=== PATIENT | male | born 1975 | race African-American/Black ===

== ENCOUNTER 2017-08-06 02:11 | Emergency (ER) | payer OTHER | END 2017-08-06 03:20 | disposition home or self-care (01) | LOC: D.ER 02:11 | DX: M25.562 Pain in left knee (principal); S83.422A Sprain of lateral collateral ligament of left knee, initial encounter; X58.XXXA Exposure to other specified factors, initial encounter; Y93.89 Activity, other specified; Y92.029 Unspecified place in mobile home as the place of occurrence of the external cause ==

== ENCOUNTER 2017-11-15 01:44 | Emergency (ER) | payer OTHER ==
[2017-11-15 02:13] LABS: BASOPHILS 0.2 % (0-2); EOSINOPHILS 0.5 % (0-7); HEMATOCRIT 45.1 % (42.0-54.0); HEMOGLOBIN 14.4 g/dL (13.5-17.5); IMMATURE GRANULOCYTES 0.3 % (0-5); LYMPHOCYTES 40.6 % (15-50); MCH 25.6 pg (26.0-34.0); MCHC 31.9 g/dL (31.0-37.0); MCV 80.2 fL (80.0-100.0); MEAN PLATELET VOLUME 9.9 fL (7.4-10.4); MONOCYTES 6.5 % (2-11); NEUTROPHILS 51.9 % (40-80); PLATELET COUNT 282 10x3/uL (130-400); RBC 5.62 10x6/uL (4.20-6.10); RDW 14.2 % (11.5-14.5); WBC 13.7 10x3/uL (4.8-10.8)
[2017-11-15 02:27] LABS: ALBUMIN 3.5 g/dL (3.4-5.0); ANION GAP 11.3 mmol/L (8-16); BILIRUBIN - TOTAL 0.3 mg/dL (0.2-1.3); CALCIUM 8.3 mg/dL (8.5-10.1); CARBON DIOXIDE 28.4 mmol/L (21.0-32.0); CREATININE - SERUM 1.2 mg/dL (0.6-1.3); POTASSIUM - SERUM 3.7 mmol/L (3.5-5.1); PROTEIN - SERUM 7.4 g/dL (6.4-8.2)
[2017-11-15 03:10] LABS: APPEARANCE HAZY (CLEAR); BILIRUBIN NEGATIVE (NEGATIVE); COLOR DK YELLOW (YELLOW); GLUCOSE NEGATIVE (NEGATIVE); KETONE NEGATIVE (NEGATIVE); NITRITE NEGATIVE (NEGATIVE); PROTEIN NEGATIVE (NEGATIVE); UROBILINOGEN NORMAL (NORMAL)
[2017-11-15 03:11] LABS: BACTERIA FEW /hpf (NONE SEEN); EPITHELIAL CELLS OCC /hpf (0-5); RED CELLS - URINE 25-50 /hpf (0-5); WHITE CELLS - URINE 0-5 /hpf (0-5)
== END 2017-11-15 03:40 | disposition home or self-care (01) ==
LOC: D.ER 01:44
PROVIDERS: Family Medicine
DX: N20.1 Calculus of ureter (principal); R10.9 Unspecified abdominal pain

== ENCOUNTER 2018-05-09 22:11 | Emergency (ER) | payer OTHER ==
[~2018-05-09] VITALS: Ht 188 cm; Wt 156.8 kg
[2018-05-09 22:15] VITALS: Ht 188 cm; Wt 156.8 kg
[2018-05-09] MEDS ORDERED: VISTARIL25 MG PO (23:14)
[2018-05-09] MEDS ORDERED: ULTRAM50 MG PO (23:16)
[2018-05-10 00:48] VITALS: BP 128/72
== END 2018-05-10 00:20 | disposition home or self-care (01) ==
LOC: D.ER 22:11
DX: L25.9 Unspecified contact dermatitis, unspecified cause (principal); M25.551 Pain in right hip

== ENCOUNTER 2018-10-04 15:46 | Emergency (ER) | payer OTHER ==
[~2018-10-04] VITALS: Ht 188 cm; Wt 163.6 kg
[~2018-10-04 15:46] MED LIST: ULTRAM50 MG PO; VISTARIL25 MG PO
[2018-10-04 16:10] VITALS: Ht 188 cm; Wt 163.6 kg
[2018-10-04] MEDS ORDERED: LISINOPRIL2.5 MG (16:11)
[2018-10-04 19:54] VITALS: BP 129/88
== END 2018-10-04 19:54 | disposition home or self-care (01) ==
LOC: D.ER 15:46
DX: R51 Headache (principal); I10 Essential (primary) hypertension; R42 Dizziness and giddiness

== ENCOUNTER 2019-08-05 23:29 | Observation (INO) | payer OTHER ==
[~2019-08-05] VITALS: Ht 188 cm; Wt 174.6 kg
[~2019-08-05 23:29] MED LIST changes: +LISINOPRIL2.5 MG
[2019-08-06] VITALS (12 sets, daily range): BP systolic 102–139; BP diastolic 69–89
[2019-08-06 00:01] LABS: BASOPHILS 0.2 % (0-2); EOSINOPHILS 0.6 % (0-7); HEMATOCRIT 46.6 % (42.0-54.0); HEMOGLOBIN 14.7 g/dL (13.5-17.5); IMMATURE GRANULOCYTES 0.3 % (0-5); LYMPHOCYTES 31.7 % (15-50); MCH 26.1 pg (26.0-34.0); MCHC 31.5 g/dL (31.0-37.0); MCV 82.6 fL (80.0-100.0); MEAN PLATELET VOLUME 9.6 fL (7.4-10.4); NEUTROPHILS 60.2 % (40-80); PLATELET COUNT 317 10x3/uL (130-400); RBC 5.64 10x6/uL (4.20-6.10); RDW 14.5 % (11.5-14.5)
[2019-08-06 00:10] LABS: CALC OSMOLALITY 289 mosm/kg (275-300); CALCIUM 8.4 mg/dL (8.5-10.1); CARBON DIOXIDE 28.1 mmol/L (21.0-32.0); CHLORIDE - SERUM 108 mmol/L (98-107); GLUCOSE 105 mg/dL (74-106); POTASSIUM - SERUM 3.7 mmol/L (3.5-5.1); SODIUM 146 mmol/L (136-145); UREA NITROGEN 10 mg/dL (7-18); eGFR NON AFRICAN AMERICAN 87 mL/min (90-120)
[2019-08-06 00:16] LABS: APTT 27.7 SECONDS (22.8-39.4); INR 0.99 (0.85-1.17); PROTIME 12.6 SECONDS (11.6-15.0)
[2019-08-06 00:17] LABS: D-DIMER-QUANTITATIVE 0.31 ug/mLFEU (0.20-0.54)
[2019-08-06 00:35] LABS: ALBUMIN 3.3 g/dL (3.4-5.0); ALKALINE PHOSPHATASE 79 U/L (46-116); ALT (SGPT) 26 U/L (10-68); BILIRUBIN - TOTAL 0.27 mg/dL (0.2-1.3); CREATINE KINASE 231 UL (21-232); MAGNESIUM - SERUM 2.1 mg/dL (1.8-2.4); PRO BNP 21 pg/mL (0-125); PROTEIN - SERUM 7.5 g/dL (6.4-8.2); TROPONIN-I < 0.017 ng/mL (0.000-0.060)
--- NOTE | 2019-08-06 01:20 | NUR ---
CARDIZEM RATE INCREASED TO 15ML/HR
--- NOTE | 2019-08-06 02:21 | NUR ---
RECIEVED REPORT FROM ER. ARRIVED TO FLOOR ON STRETCHER ACCOMPANIED BY STAFF. TRANSFERED SELF TO BED. CARDIZEM AND NS INFUSING TO RIGHT HAND. O2@ [address] LUNG SOUNDS CLEAR AND ABSX4. NO EDEMA OBSERVED. DENIES ANY NEEDS AT THIS TIME.
--- NOTE | 2019-08-06 08:18 | NUR ---
AWAKE AND ALERT. TELEMERTY SHOW AFLUTTER AT 144 IV TO LEFT FA WITH NS AT 125 AND A CARDIZEM DRIP AT 15MG/HR. DENIES ANY NEEDS. FAMILY AT BEDSIDE. WILL MONITOR
--- NOTE | 2019-08-06 17:07 | NUR ---
I have reviewed this patient and I concur with the Shift Assessment completed by the Licensed Practical Nurse today this shift.
--- NOTE | 2019-08-06 19:09 | NUR ---
JOEL BEDSIDE SHIFT REPORT. UP IN BED WITH EYES OPEN AND TV ON. ALERT AND ORIENTED X4. IV TO RIGHT HAND WITH NS AT 125 AND CARDIZEM AT 15CC/HR. TELEMETRY IN PLACE. DENIES ANY NEEDS AT THIS TIME.
[2019-08-07 00:37] VITALS: BP 106/79
--- NOTE | 2019-08-07 00:44 | NUR ---
RSTING IN BED WITH EYES CLOSED. REQUESTED A FAN EARLIER. FAN IN PLACE. NO S/S OF DISTRESS OBSERVED. CONT TO INFUSE NS AT 125CCHR AND CARDIZEM AT 15CC/HR. REAMINS IN NORMAL SINUS RHYTHM.
[2019-08-07 04:30] VITALS: BP 99/74
[2019-08-07 05:31] LABS: BASOPHILS 0.3 % (0-2); EOSINOPHILS 0.9 % (0-7); HEMATOCRIT 45.4 % (42.0-54.0); IMMATURE GRANULOCYTES 0.2 % (0-5); LYMPHOCYTES 36.4 % (15-50); MCH 25.7 pg (26.0-34.0); MCHC 30.8 g/dL (31.0-37.0); MCV 83.5 fL (80.0-100.0); MEAN PLATELET VOLUME 9.7 fL (7.4-10.4); MONOCYTES 6.9 % (2-11); NEUTROPHILS 55.3 % (40-80); PLATELET COUNT 295 10x3/uL (130-400); RBC 5.44 10x6/uL (4.20-6.10); RDW 14.5 % (11.5-14.5); WBC 10.3 10x3/uL (4.8-10.8)
[2019-08-07 05:58] LABS: ALBUMIN 2.9 g/dL (3.4-5.0); ALKALINE PHOSPHATASE 66 U/L (46-116); ALT (SGPT) 21 U/L (10-68); BILIRUBIN - TOTAL 0.43 mg/dL (0.2-1.3); CALC OSMOLALITY 283 mosm/kg (275-300); CALCIUM 8.4 mg/dL (8.5-10.1); CARBON DIOXIDE 30.4 mmol/L (21.0-32.0); CHLORIDE - SERUM 108 mmol/L (98-107); GLUCOSE 101 mg/dL (74-106); PROTEIN - SERUM 6.7 g/dL (6.4-8.2); SODIUM 143 mmol/L (136-145); UREA NITROGEN 10 mg/dL (7-18); eGFR NON AFRICAN AMERICAN 87 mL/min (90-120)
[2019-08-07 09:21] LABS: APPEARANCE CLEAR (CLEAR); BILIRUBIN NEGATIVE (NEGATIVE); COLOR YELLOW (YELLOW); GLUCOSE NEGATIVE (NEGATIVE); KETONE NEGATIVE (NEGATIVE); NITRITE NEGATIVE (NEGATIVE); PROTEIN NEGATIVE (NEGATIVE); SPECIFIC GRAVITY 1.015 (1.005-1.020); UROBILINOGEN NORMAL (NORMAL)
[2019-08-07 09:30] LABS: UDS - AMPHET NEGATIVE QUAL (NEGATIVE); UDS - BARB NEGATIVE QUAL (NEGATIVE); UDS - BENZO NEGATIVE QUAL (NEGATIVE); UDS - COCAINE NEGATIVE QUAL (NEGATIVE); UDS - OPIATE NEGATIVE QUAL (NEGATIVE); UDS - PCP NEGATIVE QUAL (NEGATIVE); UDS - THC NEGATIVE QUAL (NEGATIVE)
[2019-08-07 10:35] VITALS: BP 121/82
[2019-08-07 12:47] VITALS: BP 132/73
[2019-08-07 13:05] VITALS: Ht 188 cm; Wt 174.6 kg
[2019-08-07] MEDS ORDERED: BETAPACE 120 M120 MG PO (16:09)
[2019-08-07] MEDS ORDERED: PROTONIX40 MG PO (16:10)
[2019-08-07 16:40] VITALS: BP 130/86
--- NOTE | 2019-08-07 17:06 | NUR ---
UPON ADMIT, PATIENT HAS NOT HAD A FLU SHOT THIS YEAR. WHEN ASKED, HE REFUSES IT.
--- NOTE | 2019-08-07 17:39 | NUR ---
iv and telemetry dcd. dc plans given. understanding voiced. escorted to car.
--- NOTE | 2019-08-08 08:51 | MORECARE ---
CASE MANAGEMENT DISCHARGE SUMMARY PATIENT: TAI OLIVO UNIT: [id number] ADM DATE: 08/06/19 AGE: 44 : 75 SEX: M ROOM/BED: D.2116 AUTHOR: SUSAN MOODY PHYSICIAN: REFERRING PHYSICIAN: DELMY WYHTE MD DATE OF SERVICE: 08/08/19 Discharge Plan Patient Name: TAI OLIVO Facility: [facility]:[place] : 1975 Planned Disposition: Home Anticipated Discharge Date: 08/07/19 Discharge Date: 08/07/2019 Expected LOS: 1 Initial Reviewer: [email or web address] Initial Review Date: 08/08/2019 Generated: 08/08/19 9:50 am Patient Name: TAI OLIVO Page [id number] at 0851 All edits/amendments must be made on the electronic document DICTATION DATE: 08/08/1950 CERTIFIED MAINTENANCE WELDER: EARNEST 08/08/19 0850 RPT#: [id number] DC DATE:08/07/19 STATUS: DIS IN [facility] [address] [place] [address] END OF REPORT
--- NOTE | 2019-08-09 14:08 | CN ---
PATIENT NAME:TAI OLIVO MEDICAL RECORD: [id number] : 75 LOCATION:D. D.2116 ADMIT DATE: 08/06/19 ACCOUNT: [id number] CONSULTING PHYSICIAN: MELANI HOLCOMB MD REFERRING PHYSICIAN: DELMY WHYTE MD DATE OF CONSULTATION: 08/07/2019 ADMITTING DIAGNOSES: 1. Angina. 2. Abnormal electrocardiogram. 3. Atrial fibrillation converted to sinus rhythm. 4. Hypertension. HISTORY OF PRESENT ILLNESS: Mr. Olivo Wednesday had sudden onset of palpitations associated with chest tightness. It resolved. He had another episode of this. He presented to the Emergency Room, was found to be in atrial fibrillation with rapid ventricular response, was given Cardizem initially, slowed his rate, was given p.o. sotalol converted to sinus rhythm. He had a normal troponin. His EKG did have ST-T changes with the tachycardia and atrial fibrillation. He has no history of ischemic heart disease. No history of chest pain in the past. Family history of coronary artery disease. He has hypertension and hyperlipidemia. PHYSICAL EXAMINATION: CONSTITUTIONAL/GENERAL APPEARANCE: Well nourished, well developed, appears stated age. EYES: Lids and conjunctivae noninjected. No discharge. No pallor. ENT: Lips within normal limit. No cyanosis. No pallor. NECK: Carotid arteries, bilateral normal upstroke. No bruits. No thrills. No jugular venous pressure or distention. CERVICAL LYMPH NODES: Nontender. Nonenlarged. THYROID: Not enlarged. No nodules. CARDIOVASCULAR: Precordial exam, nondisplaced. No heaves or pericardial thrills. Rate and rhythm, regular. Heart sounds, normal S1, normal S2. No S3, no gallop, no rub. Systolic murmur, not heard. Diastolic murmur, not heard. RESPIRATORY: Respiratory effort, unlabored. Normal curvature. No thoracic deformity. No chest wall tenderness. Percussion, resonant. Auscultation, clear. No wheezes, no rales, no rhonchi. ABDOMEN: Soft, nondistended, nontender. No abdominal pain, no vomiting and normal appetite. MUSCULOSKELETAL: No joint tenderness, normal gait, normal tone. SKIN: Warm and dry. OVERALL IMPRESSION: Atrial fibrillation converted to sinus rhythm on sotalol with normal troponin, no further episodes of chest pain; however, he did have EKG abnormalities with the chest pain and does have some risk factors for coronary artery disease. We will risk stratify with stress testing and Cardiolite imaging as an outpatient. TRANSINT:[id number] Voice Confirmation ID: [id number] DOCUMENT ID: [id number] CONSULT REPORT [id number] TAI OLIVO, MELANI KRAMER at 1408 CC: [id number] DICTATION DATE: 08/07/19 110 DIGITAL HARDWARE DESIGN ENGINEER: 08/07/19 1114 DIS IN 08/07/19 [place] [id number] [place] [id number]
--- NOTE | 2019-08-09 14:08 | EC ---
PATIENT:TAI OLIVO DATE OF SERVICE: 08/07/19 SEX: M MEDICAL RECORD: [id number] DATE OF : 75 LOCATION:D.M2 D.211 AGE OF PATIENT: 44 ADMISSION DATE: 08/06/19 REFERRING PHYSICIAN: INTERPRETING PHYSICIAN: MELANI SANTIAGO MD ECHOCARDIOGRAM REPORT ECHO CHARGES 4 ECHO COMPLETE Date: 08/06/19 CLINICAL DIAGNOSIS: ATRIAL FIB ECHOCARDIOGRAPHIC MEASUREMENTS (adult normal given) AC root (d.<3.7cm) 4.0 cm LV Septum d (<1.2 cm> 1.7 cm Valve Excursion 1.6 cm LV Septum (systole) 1.8 cm Left Atria (s.<4.0cm> 4.5 cm LVPW d(<1.2cm) 1.6 cm RV (d.<2.3cm) 4.4 cm LVPW (sytole) 2.1 cm LV diastole(<5.6CM) 5.8 cm MV E-F(>70mm/sec) cm LV systole 4.2 cm LVOT Diameter 2.3 cm MV exc.(>10mm) cm Est.ejection fraction (50-75%) % DOPPLER: LVIT cm/sec A 66.0 cm/sec E 60.0 cm/sec LA cm/sec RVSP 30 mmHg LVOT 78 cm/sec AOP1/2T m/s Asc. Ao 99 cm/sec RVOT 83 cm/sec RA cm/sec PA 94 cm/sec AV Gradient Peak 3.92 mmHg AV Mean 2.31 mmHg AV Area 3.21 cm MV Gradient Peak 2.59 mmHg MV Mean 1.07 mmHg MV Area cm COMMENTS: [employer] Labourer: Romelia ELAINE Systems Analyst Engineer: 1 Dr. Santiago TAPE# PACS Pericardial Effusion N DATE OF SERVICE: FINDINGS: 1. Left ventricular chamber size is mildly dilated. Left ventricular systolic function is preserved at 55%. 2. Left atrium is enlarged at 4.3 cm. Right atrium and right ventricular chamber sizes are within normal limits. 3. Valvular structures have normal structure and motion. 4. Doppler interrogation reveals trace tricuspid regurgitation, no other valvular insufficiency or stenosis. Pulmonary systolic pressure is normal, ECHOCARDIOGRAM REPORT [id number] TAI OLIVO estimated at 30 mmHg. 5. No evidence of pericardial effusion or left ventricular thrombus. TRANSINT:[id number] Voice Confirmation ID: [id number] DOCUMENT ID: [id number] MELANI SANTIAGO MD at 1408 CC: [id number] DICTATION DATE: 08/07/19 155 FORENSIC DOCUMENT EXAMINER: 08/08/19 0052 DIS IN 08/07/19 [place] [id number] [place] [id number]
== END 2019-08-07 17:58 | disposition home or self-care (01) ==
LOC: D.ER 23:29 → OBSVTIME 08-06 00:43 → D.M2 08-06 00:43
PROVIDERS: Family Medicine; ADMIT Internal Medicine Nephrology; ATTEND Internal Medicine Nephrology
DX: I48.91 Unspecified atrial fibrillation (principal); R94.31 Abnormal electrocardiogram [ECG] [EKG]; I20.0 Unstable angina; E87.0 Hyperosmolality and hypernatremia; I10 Essential (primary) hypertension; I48.92 Unspecified atrial flutter; I24.8 Other forms of acute ischemic heart disease

== ENCOUNTER 2020-07-06 00:35 | Emergency (ER) | payer OTHER ==
[~2020-07-06] VITALS: Ht 188 cm; Wt 172.7 kg
[~2020-07-06 00:35] MED LIST changes: +BETAPACE 120 M120 MG PO; +PROTONIX40 MG PO
[2020-07-06 00:43] VITALS: Ht 188 cm; Wt 172.7 kg
[2020-07-06] MEDS ORDERED: LIPITOR10 MG (00:47)
[2020-07-06] MEDS ORDERED: CHLOROTHIAZIDE500 MG (00:47)
[2020-07-06 01:05] LABS: BASOPHILS 0.2 % (0-2); EOSINOPHILS 0.8 % (0-7); HEMATOCRIT 43.8 % (42.0-54.0); HEMOGLOBIN 13.8 g/dL (13.5-17.5); IMMATURE GRANULOCYTES 0.2 % (0-5); LYMPHOCYTES 26.1 % (15-50); MCH 25.6 pg (26.0-34.0); MCHC 31.5 g/dL (31.0-37.0); MCV 81.1 fL (80.0-100.0); MEAN PLATELET VOLUME 9.1 fL (7.4-10.4); MONOCYTES 7.4 % (2-11); NEUTROPHILS 65.3 % (40-80); PLATELET COUNT 259 10x3/uL (130-400); RDW 14.6 % (11.5-14.5); WBC 12.2 10x3/uL (4.8-10.8)
[2020-07-06 01:14] LABS: CALCIUM 8.9 mg/dL (8.5-10.1); CARBON DIOXIDE 34.1 mmol/L (21.0-32.0); CREATININE - SERUM 1.2 mg/dL (0.6-1.3); POTASSIUM - SERUM 3.1 mmol/L (3.5-5.1)
[2020-07-06 01:17] LABS: APTT 26.9 SECONDS (22.8-39.4); PROTIME 13.2 SECONDS (11.6-15.0)
[2020-07-06 01:18] LABS: D-DIMER-QUANTITATIVE 0.32 ug/mLFEU (0.20-0.54)
[2020-07-06 01:20] LABS: ALBUMIN 3.4 g/dL (3.4-5.0); BILIRUBIN - TOTAL 0.34 mg/dL (0.2-1.3); C-REACTIVE PROTEIN 2.2 mg/dL (0.0-0.9); PROTEIN - SERUM 7.5 g/dL (6.4-8.2); URIC ACID 8.1 mg/dL (2.6-7.2)
[2020-07-06 01:49] LABS: BILIRUBIN NEGATIVE (NEGATIVE); KETONE NEGATIVE (NEGATIVE); NITRITE NEGATIVE (NEGATIVE); UROBILINOGEN NORMAL mg/dL (< 2)
[2020-07-06 01:55] LABS: UDS - AMPHET NEGATIVE QUAL (NEGATIVE); UDS - BARB NEGATIVE QUAL (NEGATIVE); UDS - BENZO NEGATIVE QUAL (NEGATIVE); UDS - COCAINE NEGATIVE QUAL (NEGATIVE); UDS - OPIATE POSITIVE QUAL (NEGATIVE); UDS - PCP NEGATIVE QUAL (NEGATIVE); UDS - THC NEGATIVE QUAL (NEGATIVE)
[2020-07-06 01:59] LABS: ERYTHROCYTE SEDIMENTATION RATE 9 mm/hr (0-15)
[2020-07-06] MEDS ORDERED: COLCRYS0.6 MG PO (02:06)
[2020-07-06 02:19] VITALS: BP 137/83
== END 2020-07-06 02:21 | disposition home or self-care (01) ==
LOC: D.ER 00:35
PROVIDERS: Family Medicine
DX: M25.561 Pain in right knee (principal); M10.9 Gout, unspecified; E87.6 Hypokalemia; I10 Essential (primary) hypertension; I25.2 Old myocardial infarction; I48.91 Unspecified atrial fibrillation

== ENCOUNTER → 2020-12-31 18:05 | Outpatient (CLI) | payer OTHER ==
[2020-07-06 00:43] VITALS: BMI 48.9
[~2020-12-31 18:05] MED LIST changes: +CHLOROTHIAZIDE500 MG; +COLCRYS0.6 MG PO; +LIPITOR10 MG
[2020-12-31 21:22] LABS: EOS BF 1 %; MACROPHAGES BF 3 %; NEUT - BF 21 %
== END | disposition home or self-care (01) ==
LOC: D.LABREF 18:05
PROVIDERS: ATTEND Nurse Practitioner Family
DX: M25.561 Pain in right knee (principal)